=== PATIENT | female | born 1950 | race Caucasian/White ===

== ENCOUNTER 2017-07-09 06:46 | Inpatient (IN) ==
[2017-07-05 16:06] LABS: Appearance,Urine CLEAR; Bilirubin,Urine NEG (NEG); Color,Urine YELLOW; Glucose,Urine (UA) NEGATIVE (NEG); Leukocyte Esterase,Urine NEG /uL (NEG); Nitrate,Urine NEG (NEG); Protein,Urine NEG (NEG); Urine Blood NEG mg/dL (<0.03); Urobilinogen,Urine NEG (NEG)
[2017-07-05 16:39] LABS: Basophils # (Auto) 0 K/mcL (0.0-0.3); Basophils % (Auto) 0.3 % (0.0-2.0); Eosinophils # (Auto) 0.2 K/mcL (0.0-0.7); Eosinophils % (Auto) 2.2 % (0.0-7.0); Granulocytes % (Auto) 65.5 % (38.0-78.0); Lymphocytes % (Auto) 26.8 % (15.5-49.0); Mean Cell Volume 88.2 fL (80.0-100.0); Mean Corpuscular HGB Conc 33.8 g/dL (31.0-36.0); Mean Corpuscular Hemoglobin 29.8 pg (26.0-34.0); Monocytes # (Auto) 0.6 K/mcL (0.1-0.9); Monocytes % (Auto) 5.2 % (1.0-12.0); Platelet Count 346 K/mcL (140-440); RBC 5.13 M/mcL (4.00-5.20); Red Cell Distribution Width 12.8 % (11.5-14.5)
[2017-07-05 17:22] LABS: Blood Urea Nitrogen 16 mg/dl (8-23)
[~2017-07-09 06:46] MED LIST: ACETAMINOPHEN 500 MG TABLET PO SCH; CELECOXIB 200 MG CAPSULE PO SCH; KETOROLAC 30 MG, ROPIVACAINE HCL/PF 49.5 ML, EPINEPHrine 0.5 MG, 0.9 % SODIUM CHLORIDE ... IJ SCH; PREGABALIN 75 MG CAPSULE PO SCH; ceFAZolin 1 GM VIAL IV SCH; oxyCODONE 10 MG TAB.ER.12H PO SCH
[2017-07-09] MEDS ORDERED: SCOPOLAMINE 1 PATCH PATCH TOPICAL ONE (09:14)
[2017-07-09] MEDS ORDERED: DEXAMETHASONE 10 MG/ML VIAL IV ONE (09:25)
[2017-07-09] MEDS ORDERED: ONDANSETRON 4 MG/2 ML VIAL IV ONE (09:25)
[2017-07-09] MEDS ORDERED: PROPOFOL 200 MG/20 ML VIAL IV ONE (09:25)
[2017-07-09] MEDS ORDERED: LIDOCAINE HCL/PF 100 MG/5 ML SYRINGE IV ONE (09:25)
[2017-07-09] MEDS ORDERED: MIDAZOLAM 2 MG/2 ML VIAL IV ONE (09:25)
[2017-07-09] MEDS ORDERED: ROPIVACAINE HCL/PF 20 ML VIAL IJ ONE (09:25)
[2017-07-09] MEDS ORDERED: TRANEXAMIC ACID 1,000 MG/10 ML VIAL IV ONE ×2 (09:25→10:51)
[2017-07-09] MEDS ORDERED: METHOCARBAMOL 1,000 MG/10 ML VIAL IV PRN (10:19)
[2017-07-09] MEDS ORDERED: MEPERIDINE 50 MG/ML SYRINGE IM PRN (10:19)
[2017-07-09] MEDS ORDERED: BENZOCAINE/MENTHOL 1 LOZENGE PO PRN ×2 (10:19→10:51)
[2017-07-09] MEDS ORDERED: PROMETHAZINE 25 MG/ML VIAL IM PRN (10:19)
[2017-07-09] MEDS ORDERED: IPRATROPIUM/ALBUTEROL 3 ML AMPUL.NEB NEB PRN (10:19)
[2017-07-09] MEDS ORDERED: LACTATED RINGERS 250 ML IV PRN (10:19)
[2017-07-09] MEDS ORDERED: ONDANSETRON 4 MG/2 ML VIAL IV PRN ×2 (10:19→10:51)
[2017-07-09] MEDS ORDERED: PROMETHAZINE 25 MG/ML VIAL IV PRN (10:19)
[2017-07-09] MEDS ORDERED: diphenhydrAMINE 50 MG/ML VIAL IV PRN (10:19)
[2017-07-09] MEDS ORDERED: FLUMAZENIL 0.1 MG/ML ML IV PRN (10:19)
[2017-07-09] MEDS ORDERED: fentaNYL 100 MCG/2 ML VIAL IV PRN (10:19)
[2017-07-09] MEDS ORDERED: ePHEDrine 50 MG/ML AMPUL IV PRN (10:19)
[2017-07-09] MEDS ORDERED: NALOXONE HCL 0.4 MG/ML VIAL IV PRN (10:19)
[2017-07-09] MEDS ORDERED: MEPERIDINE 25 MG/ML SYRINGE IV PRN (10:19)
[2017-07-09] MEDS ORDERED: LACTATED RINGERS 1,000 ML IV SCH (10:30)
[2017-07-09] MEDS ORDERED: GENTAMICIN SULFATE 800 MG/20 ML VIAL IR ONE (10:35)
[2017-07-09] MEDS ORDERED: POLYETHYLENE GLYCOL 3350 17 GM PACKET PO PRN (10:51)
[2017-07-09] MEDS ORDERED: oxyCODONE/APAP 5/325MG TABLET PO PRN (10:51)
[2017-07-09] MEDS ORDERED: FLEETS ADULT ENEMA PR PRN (10:51)
[2017-07-09] MEDS ORDERED: HYDROmorphone 2 MG/ML SYRINGE IV PRN (10:51)
[2017-07-09] MEDS ORDERED: TEMAZEPAM 15 MG CAPSULE PO PRN (10:51)
[2017-07-09] MEDS ORDERED: MAGNESIUM HYDROXIDE 30 ML ORAL.SUSP PO PRN (10:51)
[2017-07-09] MEDS ORDERED: ACETAMINOPHEN 325 MG TABLET PO PRN (10:51)
[2017-07-09] MEDS ORDERED: BISACODYL 10 MG SUPP.RECT PR PRN (10:51)
--- NOTE | 2017-07-09 10:51 | Brief Operative Note ---
Date of procedure: 07/09/17 Pre-op diagnosis: Right knee severe djd Post-op diagnosis: same Procedure: right knee tka with robot Grafts/Implants: Yes Anesthesia: GETA Complications: none Surgeon: Ayaz Holcomb [employer] Counselor: Jak Coles Estimated blood loss (cc): 50 Tourniquet Time (Minutes): 40 Specimens Removed/Pathology: none sent Condition: stable Disposition: PACU
[2017-07-09] MEDS ORDERED: traMADol 50 MG TABLET PO PRN (10:58)
--- NOTE | 2017-07-09 11:49 | XRay Report ---
CLINICAL INFORMATION: Status post right knee replacement TECHNIQUE: AP and crosstable lateral right knee COMPARISON: Preoperative evaluation dated 06/05/2017 FINDINGS: Status post right total knee arthroplasty. Femoral and tibial complements are in anatomic positions. There is postsurgical soft tissue and intra-articular gas. IMPRESSION: Right knee arthroplasty Interpreted and Authenticated by: Steve Mueller 07/09/17
--- NOTE | 2017-07-09 12:55 | Operative Note ---
DATE OF OPERATION: 07/09/2017 PREOPERATIVE DIAGNOSIS: Right knee degenerative arthritis, severe. POSTOPERATIVE DIAGNOSIS: Right knee degenerative arthritis, severe with the addition of a flexion contracture of about 20 degrees with valgus malalignment about 10. PROCEDURE: Right total knee arthroplasty using the SINTIA robot. SURGEON: Ayaz Holcomb MD SLIDE FASTENERS INSPECTOR: Jak Coles PA-C ANESTHESIA: General LMA anesthesia. TOURNIQUET TIME: 40 minutes. ESTIMATED BLOOD LOSS: 50 mL DESCRIPTION OF PROCEDURE: The patient was brought to the operating room and put to sleep with general LMA anesthesia. Once asleep, the patient had the right leg sterilely prepped and draped in the usual sterile fashion. Confirmed the operative site with a preoperative timeout as well as tranexamic acid and Ancef were given. Once this had been given we made a midline incision, a mid vastus approach performed showing severe arthritis with a flexion contracture of about 20 degrees. We placed pins above and below the knee, intraarticular pins and registered 30 points on the femur and tibia. We balanced the knee, both at 15 and 90 degrees. Once balanced and we moved the implants to accommodate for the flexion contracture we irrigated thoroughly and then brought the robot in and registered the robot and then made our cuts on the femur and on the tibial side. Once done, we then took the bony fragments away and removed the remnants of the meniscus, removed osteophytes posteriorly. I injected the soft tissues with the post-injection formula. We then completely clean out the knee with thorough irrigation. The CarboJet was used to clean the bone. We then placed cement and the tibial baseplate. Rotation was set by the robot. We then placed the femoral component and 11 mm poly. This balanced very nicely both in flexion and extension and then we prepared the patella measuring 20 mm. We cut this to 13 mm and placed a 13 mm poly because of the severity of the wear. Once everything was dry, we then removed excess cement. We closed the capsule with #1 Stratafix x2 stitches we closed the skin with 2-0 Vicryl and adhesive closure. Sterile bandage applied. Tourniquet 40 minutes. RBH:haseeb Job ID: [id number] Doc ID: [id number] Ayaz Holcomb MD
[2017-07-09] MEDS: 0.45 % SODIUM CHLORIDE 1,000 ML IV SCH ×2 (13:07→22:44)
[2017-07-09] MEDS: KETOROLAC 15 MG/ML VIAL IV SCH ×2 (13:07→17:54)
[2017-07-09] MEDS: 0.9 % SODIUM CHLORIDE 10 ML SYRINGE IV SCH (13:08)
[2017-07-09] MEDS: ceFAZolin 1 GM VIAL IV SCH (17:54)
[2017-07-09] MEDS: DOCUSATE SODIUM 100 MG CAPSULE PO SCH (20:55)
[2017-07-09] MEDS: ASPIRIN 325 MG ENTERIC COATED TABLET PO SCH (20:56)
[2017-07-09] MEDS ORDERED: SIMVASTATIN 10 MG TABLET PO SCH (21:00)
[2017-07-09] MEDS ORDERED: SENNOSIDES 1 TABLET PO SCH (21:00)
[2017-07-09] MEDS ORDERED: NORTRIPTYLINE 10 MG CAPSULE PO SCH (21:00)
[2017-07-10] MEDS: KETOROLAC 15 MG/ML VIAL IV SCH ×3 (00:19→12:45)
[2017-07-10] MEDS: ceFAZolin 1 GM VIAL IV SCH (00:19)
[2017-07-10] MEDS: 0.9 % SODIUM CHLORIDE 10 ML SYRINGE IV SCH ×2 (00:19→04:33)
--- NOTE | 2017-07-10 07:45 | Orthopedic Progress Note ---
Subjective Patient information: Note initiated : 07/10/17 at 7:44 am Service Date, if different from initiated Date: [] Patient: Татьяна Montemayor 67 y/o F admitted on 07/09/17 for Arthroplasty, Knee Total Right [place]. Chief Complaint: [Pt is stable this morning on post operative day 1 without any significant concerns or complaints. Patients vital signs have remained stable. Patients dressing is dry and exhibits a grossly intact neurovascular and neuromotor exam. Patients 10 point ROS is otherwise negative. ] Objective Vital signs: Vital Signs Temp Pulse Resp BP Pulse Ox 07/10/17 04:00 97 07/09/17 23:33 98.0 F 77 16 132/77 97 07/09/17 20:00 97.8 F 86 18 144/78 95 07/09/17 15:50 96.9 F L 84 16 130/72 96 07/09/17 14:34 97.4 F 82 16 147/85 95 07/09/17 13:21 85 148/78 95 07/09/17 12:50 85 129/75 94 07/09/17 12:35 87 154/79 94 07/09/17 12:22 88 153/83 95 07/09/17 12:20 95 07/09/17 12:05 97.4 F 88 16 147/72 94 07/09/17 11:50 98.6 F 98 H 20 136/58 98 07/09/17 11:35 96 H 16 138/65 100 07/09/17 11:20 97 H 19 131/57 98 07/09/17 11:15 95 07/09/17 11:07 98.8 F 98 H 12 131/64 94 Intake and Output 07/09/17 07/10/17 07/10/17 21:59 05:59 13:59 Intake Total 1542 / 1542 Output Total 1078 / 1078 300 / 300 Balance -1078 / -1078 1242 / 1242 Intake: IV 962 / 962 Sodium Chloride 0.45% 1,000 ml 962 / 962 @ 100 mls/hr IV .Q10H [facility] Rx#: [id number] Oral 580 / 580 Output: Void Amount 1075 / 1075 300 / 300 # of times incontinent of urine 2 / 2 Emesis / Other: # Voids 1 1 Weight 196 lb Intake & Output: Intake & Output 07/09/17 07/10/17 07/10/17 21:59 05:59 13:59 Intake Total 1542 / 1542 Output Total 1078 / 1078 300 / 300 Balance -1078 / -1078 1242 / 1242 Weight 196 lb Intake: IV 962 / 962 Sodium Chloride 0.45% 1,000 ml 962 / 962 @ 100 mls/hr IV .Q10H [facility] Rx#: [id number] Oral 580 / 580 Output: Void Amount 1075 / 1075 300 / 300 # of times incontinent of urine 2 / 2 Emesis Other: # Voids 1 1 Incision: Yes healing Incision clean and dry: Yes Dressing: Yes clean, Yes dry Weight bearing status: full Neurological exam IM: Yes motor sensory intact, Yes neurovascular intact Extremities exam IM: Yes Foot pink and warm, Yes neurovascular intact - Labs CBC & BMP: 07/10/17 06:00 07/05/17 14:32 Labs: Orthopedic Labs 07/05/17 14:32 PT 12.6 INR 0.9 APTT 27 07/10/17 07/05/17 06:00 14:32 Hgb 15.3 H Hct 36.3 45.3 Assessment and Plan (1) Hx of total knee arthroplasty The patient has been educated regarding dressing care, Physical Therapy recommendations, home exercises, restrictions, and follow up appointments. The patient has had all necessary DME prescribed. The patient has remained stable during their hospital course. The patient was discharge with a stable exam. Status: Acute
--- NOTE | 2017-07-10 07:47 | Discharge Summary ---
Ortho Discharge - TKA - Patient Instructions Diet: Regular Diet Activity: activity as tolerated, weight bearing as tolerated Total Knee Protocol: For Total Knee: Start ROM EDD with stationary bike or rocking chair. Work on gaining full extension of knee. Posterior dislocation precautions provided. Hip abductor strengthening and gait training instructions provided. Apply Cryocuff as instructed. Dressing Care: May shower in 2 days Additional Instructions: CPM for home use - Problem Maintenance (1) Hx of total knee arthroplasty Status: Acute - Follow Up Plan Follow Up Appointments: Ayaz Holcomb MD [Physician] - 07/24/17 10:00 am Disposition: Home, Self-Care Prognosis: Good Rehab Potential: Good I certify that the patient requires SNF services: No Overall status at discharge: patient is progressing back to baseline - Orders For Discharge Prescriptions: Aspirin [Ecotrin] 325 mg PO BID #60 tab.ec Docusate Sodium [Colace] 100 mg PO BID #60 cap oxyCODONE/APAP [Percocet 5-325 mg] 1 - 2 tab PO Q4HP PRN #75 tab PRN Reason: Pain
[2017-07-10] MEDS ORDERED: metFORMIN 500 MG TAB.XL.24H PO SCH (08:00)
[2017-07-10] MEDS: ASPIRIN 325 MG ENTERIC COATED TABLET PO SCH (09:57)
[2017-07-10] MEDS: DOCUSATE SODIUM 100 MG CAPSULE PO SCH (09:57)
[2017-07-11] MEDS ORDERED: IBUPROFEN 200 MG TABLET PO PRN (13:00)
== END 2017-07-10 14:30 | disposition home or self-care (01) | DRG 470 ==
LOC: MEDSUR 06:46
PROVIDERS: ADMIT Orthopaedic Surgery; ATTEND Orthopaedic Surgery

== ENCOUNTER 2018-09-23 07:15 | Inpatient (IN) ==
[2018-09-17 15:42] LABS: Appearance,Urine HAZY; Bilirubin,Urine NEG (NEG); Color,Urine YELLOW; Glucose,Urine (UA) NEGATIVE (NEG); Leukocyte Esterase,Urine NEG /uL (NEG); Protein,Urine NEG (NEG); Specific Gravity,Urine 1.024 (1.000-1.035); Urine Blood NEG mg/dL (<0.03); Urobilinogen,Urine NEG (NEG)
[2018-09-17 15:53] LABS: Basophils # (Auto) 0 K/mcL (0.0-0.3); Basophils % (Auto) 0.2 % (0.0-2.0); Eosinophils # (Auto) 0.1 K/mcL (0.0-0.7); Eosinophils % (Auto) 0.5 % (0.0-7.0); Granulocytes % (Auto) 76.4 % (38.0-78.0); Lymphocytes # (Auto) 1.9 K/mcL (1.5-4.8); Lymphocytes % (Auto) 17.3 % (15.5-49.0); Mean Cell Volume 86.9 fL (80.0-100.0); Mean Corpuscular HGB Conc 32.8 g/dL (31.0-36.0); Monocytes # (Auto) 0.6 K/mcL (0.1-0.9); Monocytes % (Auto) 5.6 % (1.0-12.0); Platelet Count 350 K/mcL (140-440); RBC 5.41 M/mcL (4.00-5.20); Red Cell Distribution Width 12.9 % (11.5-14.5)
[2018-09-17 16:01] LABS: Blood Urea Nitrogen 21 mg/dl (8-23)
[2018-09-17 17:43] LABS: Estimated Average Glucose(eAG) 117 mg/dL; Hemoglobin A1C 5.7 % HGB (4.0-6.0)
[~2018-09-23 07:15] MED LIST changes: +0.9 % SODIUM CHLORIDE 9 ML, KETOROLAC 30 MG, ROPIVACAINE HCL/PF 49.5 ML, EPINEPHrine 0.... IJ SCH; -KETOROLAC 30 MG, ROPIVACAINE HCL/PF 49.5 ML, EPINEPHrine 0.5 MG, 0.9 % SODIUM CHLORIDE ... IJ SCH
[2018-09-23] MEDS ORDERED: SCOPOLAMINE 1 PATCH PATCH TOPICAL ONE (08:00)
[2018-09-23] MEDS ORDERED: GENTAMICIN SULFATE 800 MG/20 ML VIAL IR ONE (12:25)
[2018-09-23] MEDS ORDERED: IPRATROPIUM/ALBUTEROL 3 ML AMPUL.NEB NEB PRN (12:42)
[2018-09-23] MEDS ORDERED: ATROPINE SULFATE 0.4 MG/ML VIAL IV PRN (12:42)
[2018-09-23] MEDS ORDERED: PROMETHAZINE 25 MG/ML VIAL IV PRN (12:42)
[2018-09-23] MEDS ORDERED: diphenhydrAMINE 50 MG/ML VIAL IV PRN (12:42)
[2018-09-23] MEDS ORDERED: ONDANSETRON 4 MG/2 ML VIAL IV PRN ×2 (12:42→13:19)
[2018-09-23] MEDS ORDERED: METHOCARBAMOL 1,000 MG/10 ML VIAL IV PRN (12:42)
[2018-09-23] MEDS ORDERED: FLUMAZENIL 0.1 MG/ML ML IV PRN (12:42)
[2018-09-23] MEDS ORDERED: ePHEDrine 50 MG/ML AMPUL IV PRN (12:42)
[2018-09-23] MEDS ORDERED: METOPROLOL TARTRATE 5 MG/5 ML VIAL IV PRN (12:42)
[2018-09-23] MEDS ORDERED: HYDROmorphone 2 MG/ML VIAL IV PRN ×2 (12:42→13:19)
[2018-09-23] MEDS ORDERED: MEPERIDINE 25 MG/ML SYRINGE IV PRN (12:42)
[2018-09-23] MEDS ORDERED: NALOXONE HCL 0.4 MG/ML VIAL IV PRN (12:42)
[2018-09-23] MEDS ORDERED: fentaNYL 100 MCG/2 ML VIAL IV PRN (12:42)
[2018-09-23] MEDS ORDERED: LACTATED RINGERS 1,000 ML IV SCH (12:45)
--- NOTE | 2018-09-23 13:18 | Brief Operative Note ---
Date of procedure: 09/23/18 Pre-op diagnosis: left knee djd Post-op diagnosis: same Procedure: left robotic tka Grafts/Implants: Yes Anesthesia: GETA Complications: none Surgeon: Ayaz Holcomb [employer] Designer: Jak Coles Estimated blood loss (cc): 20 Tourniquet Time (Minutes): 50 Specimens Removed/Pathology: none sent Condition: stable Disposition: PACU
[2018-09-23] MEDS ORDERED: TRANEXAMIC ACID 1,000 MG/10 ML VIAL IV SCH (13:19)
[2018-09-23] MEDS ORDERED: FLEETS ADULT ENEMA PR PRN (13:19)
[2018-09-23] MEDS ORDERED: BISACODYL 10 MG SUPP.RECT PR PRN (13:19)
[2018-09-23] MEDS ORDERED: BENZOCAINE/MENTHOL 1 LOZENGE PO PRN (13:19)
[2018-09-23] MEDS ORDERED: oxyCODONE/APAP 5/325MG TABLET PO PRN (13:19)
[2018-09-23] MEDS ORDERED: ACETAMINOPHEN 325 MG TABLET PO PRN (13:19)
[2018-09-23] MEDS ORDERED: MAGNESIUM HYDROXIDE 30 ML ORAL.SUSP PO PRN (13:19)
[2018-09-23] MEDS ORDERED: POLYETHYLENE GLYCOL 3350 17 GM PACKET PO PRN (13:19)
[2018-09-23] MEDS ORDERED: ONDANSETRON 4 MG/2 ML VIAL IV ONE (13:39)
[2018-09-23] MEDS ORDERED: ePHEDrine 50 MG/ML AMPUL IV ONE (13:39)
[2018-09-23] MEDS ORDERED: TRANEXAMIC ACID 1,000 MG/10 ML VIAL IV ONE (13:39)
[2018-09-23] MEDS ORDERED: ROPIVACAINE HCL/PF 20 ML VIAL IJ ONE (13:39)
[2018-09-23] MEDS ORDERED: GLYCOPYRROLATE 0.2 MG/ML VIAL IV ONE (13:39)
[2018-09-23] MEDS ORDERED: PHENYLEPHRINE 10 MG/ML VIAL IV ONE (13:39)
[2018-09-23] MEDS ORDERED: MIDAZOLAM 5 MG/5 ML VIAL IV ONE (13:39)
[2018-09-23] MEDS ORDERED: LIDOCAINE HCL/PF 100 MG/5 ML SYRINGE IV ONE (13:39)
[2018-09-23] MEDS ORDERED: PROPOFOL 200 MG/20 ML VIAL IV ONE (13:39)
[2018-09-23] MEDS ORDERED: PROMETHAZINE 25 MG/ML VIAL IV ONE (13:39)
--- NOTE | 2018-09-23 14:18 | XRay Report ---
CLINICAL INFORMATION: Post-Op Total Knee COMPARISON: None. FINDINGS: Total knee prostheses is anatomically aligned. No osseous abnormality. Periarticular gas and soft tissue swelling seen as expected. IMPRESSION: Negative Interpreted and Authenticated by: Steve Greer 09/23/18
--- NOTE | 2018-09-23 14:23 | Operative Note ---
DATE OF OPERATION: 09/23/2018 PREOPERATIVE DIAGNOSES: Left knee degenerative arthritis with valgus malalignment and flexion contracture of 30 degrees. POSTOPERATIVE DIAGNOSIS: Left knee degenerative arthritis with valgus malalignment and flexion contracture of 30 degrees. PROCEDURE: Left robotic total knee arthroplasty. COMPLICATIONS: None. SURGEON: Ayaz Holcomb MD CABLE SWAGER: Jak Coles PA-C. ANESTHESIA: General LMA anesthesia. ESTIMATED BLOOD LOSS: About 20 to 30 mL TOURNIQUET TIME: 50 minutes. IMPLANTS: Per nurse's note. These were cemented [place] components. The poly was a 12 mm poly with a 36 mm patellar button. DESCRIPTION OF PROCEDURE: The patient was brought to the surgery area and a timeout was performed confirming the left knee as the operative site. Initials and consent form and x-rays were all reviewed to make sure this was the case. Once done, we then proceed with left robotic total knee. We made a midline incision, mid vastus approach performed. We placed pins above and below the knee, registered the center hip rotation. Medial and lateral malleoli were registered as well as 30 points on the femur and the tibia. We balanced the knee after removing spurs, brought in the robot, made the appropriate cuts. She started with an initial malalignment of about 3 degrees of valgus and 30 degrees flexion contracture. We did make a +2 mm cut on the femur to assist us with gaining full extension. With this, we then made the bony cuts, removed spurs posteriorly. We preserved the PCL and performed a subperiosteal release of the lateral collateral ligament. Once done, we then irrigated thoroughly and placed a 12 mm poly which was the most appropriate, gaining 4 degrees of flexion contracture and balanced perfectly. The patient tolerated this well. There was no complication. We then cemented into place the components. Excess cement was removed, 9 mm poly. The patella was originally 22 mm in thickness. This was cut to 13 mm and we cemented into place a 36 mm patellar button. A small chamfer cut and spurs removed from the patella-it tracked perfectly. We irrigated thoroughly and then cemented the patella and kept it at 45 degrees until cement was dry. We irrigated thoroughly once more and injected the posterior capsular injection and then closed the mid vastus approach with #1 Stratafix x2 sutures. The skin was closed with #1 Stratafix and adhesive closure. The patient tolerated this well without complication. RBSejal:haseeb Job ID: [id number] Doc ID: [id number] Ayaz Holcomb MD
[2018-09-23] MEDS: 0.9 % SODIUM CHLORIDE 10 ML SYRINGE IV SCH ×2 (14:55→21:14)
[2018-09-23] MEDS: ceFAZolin 1 GM VIAL IV SCH (18:01)
[2018-09-23] MEDS: KETOROLAC 30 MG/ML VIAL IV SCH ×2 (18:02→23:25)
[2018-09-23] MEDS: 0.45 % SODIUM CHLORIDE 1,000 ML IV SCH ×2 (18:03→23:00)
[2018-09-23] MEDS ORDERED: NORTRIPTYLINE 10 MG CAPSULE PO SCH (21:00)
[2018-09-23] MEDS ORDERED: TEMAZEPAM 15 MG CAPSULE PO PRN (21:00)
[2018-09-23] MEDS ORDERED: SIMVASTATIN 10 MG TABLET PO SCH (21:00)
[2018-09-23] MEDS ORDERED: SENNOSIDES 1 TABLET PO SCH (21:00)
[2018-09-23] MEDS ORDERED: GABAPENTIN 300 MG CAPSULE PO SCH (21:00)
[2018-09-23] MEDS: ASPIRIN 325 MG ENTERIC COATED TABLET PO SCH (21:01)
[2018-09-23] MEDS: DOCUSATE SODIUM 100 MG CAPSULE PO SCH (21:02)
[2018-09-24] MEDS: ceFAZolin 1 GM VIAL IV SCH (03:39)
[2018-09-24] MEDS: KETOROLAC 30 MG/ML VIAL IV SCH ×2 (05:53→12:49)
[2018-09-24] MEDS: 0.9 % SODIUM CHLORIDE 10 ML SYRINGE IV SCH (05:54)
--- NOTE | 2018-09-24 07:44 | Orthopedic Progress Note ---
Subjective Patient information: Note initiated : 09/24/18 at 7:43 am Service Date, if different from initiated Date: [] Patient: Татьяна Montemayor 68 y/o F admitted on 09/23/18 for Left Robotic Total Knee Arthroplasty. Chief Complaint: [Pt is stable this morning on post operative day 1 without any significant concerns or complaints. Patients vital signs have remained stable. Patients dressing is dry and is grossly intact from a neurovascular and motor standpoint. Patients 10 point ROS is otherwise negative. ] Objective Vital signs: Vital Signs Temp Pulse Resp BP BP Pulse Ox 09/24/18 03:33 97.9 F 77 16 118/62 95 09/23/18 23:27 97.6 F 85 18 138/68 95 09/23/18 19:39 97.8 F 91 H 18 150/69 94 09/23/18 18:22 96 09/23/18 15:55 127/69 96 09/23/18 15:23 129/67 96 09/23/18 15:09 122/67 95 09/23/18 14:53 132/68 94 09/23/18 14:38 130/69 96 09/23/18 14:23 132/68 95 09/23/18 14:11 98.0 F 86 13 132/59 97 09/23/18 13:51 97.0 F 94 H 23 H 137/63 99 09/23/18 13:46 92 H 14 146/63 100 09/23/18 13:41 94 H 14 137/55 100 09/23/18 13:36 97.1 F 95 H 12 134/58 100 Intake and Output 09/23/18 09/24/18 09/24/18 21:59 05:59 13:59 Intake Total 2420 1600 Output Total 1200 550 Balance 1220 1050 Intake: IV 1000 Sodium Chloride 0.45% 1,000 ml 1000 @ 100 mls/hr IV .Q10H [facility] Rx#: [id number] Oral 420 600 Other 2000 Output: Void Amount 1200 550 Other: Meal Dinner Percent of Meal Consumed 100% Weight 214 lb Intake & Output: Intake & Output 09/23/18 09/24/18 09/24/18 21:59 05:59 13:59 Intake Total 2420 1600 Output Total 1200 550 Balance 1220 1050 Weight 214 lb Intake: IV 1000 Sodium Chloride 0.45% 1,000 ml 1000 @ 100 mls/hr IV .Q10H [facility] Rx#: [id number] Oral 420 600 Other 2000 Output: Void Amount 1200 550 Other: Meal Dinner Percent of Meal Consumed 100% Incision: Yes healing Incision clean and dry: Yes Dressing: Yes clean Weight bearing status: full Neurological exam IM: Yes motor sensory intact, Yes neurovascular intact Extremities exam IM: Yes Foot pink and warm, Yes neurovascular intact - Labs CBC & BMP: 09/24/18 05:36 09/17/18 13:32 Labs: Orthopedic Labs 09/17/18 13:33 PT 13.2 INR 1.0 APTT 28 09/24/18 09/17/18 05:36 13:33 Hgb 15.4 H Hct 38.5 47.0 Assessment and Plan (1) Hx of total knee arthroplasty The patient has been educated regarding dressing care, Physical Therapy recommendations, home exercises, restrictions, and follow up appointments. The patient has had all necessary DME prescribed. The patient has remained relatively stable during their hospital course. Leave Dermabond patch intact until followup Status: Acute
--- NOTE | 2018-09-24 07:47 | Discharge Summary ---
Ortho Discharge - TKA - Patient Instructions Diet: Regular Diet Activity: activity as tolerated, weight bearing as tolerated Total Knee Protocol: For Total Knee: Start ROM EDD with stationary bike or rocking chair. Work on gaining full extension of knee. Posterior dislocation precautions provided. Hip abductor strengthening and gait training instructions provided. Apply Cryocuff as instructed. Dressing Care: May shower in 2 days - Problem Maintenance (1) Hx of total knee arthroplasty Status: Acute - Follow Up Plan Follow Up Appointments: Jak Coles PA-C [Physician Body Liner] - 10/08/18 8:40 am Disposition: Home, Self-Care Prognosis: Good Rehab Potential: Good I certify that the patient requires SNF services: No Overall status at discharge: patient is progressing back to baseline - Orders For Discharge Prescriptions: Aspirin [Ecotrin] 325 mg PO BID #60 tab.ec Docusate Sodium [Colace] 100 mg PO BID #60 capsule Gabapentin [Neurontin] 300 mg PO HS #30 capsule oxyCODONE/APAP [Percocet 5-325 mg] 1 - 2 tab PO Q4HP PRN #75 tab PRN Reason: Pain Level 3-6
[2018-09-24] MEDS: ASPIRIN 325 MG ENTERIC COATED TABLET PO SCH (08:29)
[2018-09-24] MEDS: DOCUSATE SODIUM 100 MG CAPSULE PO SCH (08:29)
[2018-09-24] MEDS ORDERED: LISINOPRIL 20 MG TABLET PO SCH (09:00)
[2018-09-24] MEDS: 0.45 % SODIUM CHLORIDE 1,000 ML IV SCH (09:44)
[2018-09-24] MEDS ORDERED: metFORMIN 500 MG TAB.XL.24H PO SCH (21:00)
== END 2018-09-24 13:40 | disposition home or self-care (01) | DRG 470 ==
LOC: MEDSUR 07:15
PROVIDERS: ADMIT Orthopaedic Surgery; ATTEND Orthopaedic Surgery

== ENCOUNTER 2025-03-09 13:48 | Observation (INO) ==
[2025-03-09] MEDS: DEXTROSE 50% 50 ML VIAL IV ONE (14:39)
[2025-03-09] MEDS: INSULIN REGULAR, HUMAN 1 UNIT/0.01 ML UNIT IV ONE (14:41)
[2025-03-09] MEDS: NITROGLYCERIN/D5W 25 MG/250 ML BOTTLE IV SCH (14:44)
[2025-03-09] MEDS: SODIUM BICARBONATE VIAL 50 MEQ in EMPTYBAG 0 ML IV SCH (14:54)
[2025-03-09] MEDS: SODIUM BICARBONATE 50 MEQ/50 ML VIAL IV ONE (15:16)
[2025-03-09] MEDS ORDERED: ONDANSETRON 4 MG/2 ML VIAL IV PRN (16:33)
[2025-03-09] MEDS ORDERED: LABETALOL HCL 20 MG/4 ML VIAL IV PRN (16:33)
[2025-03-09] MEDS ORDERED: DEXTROSE 31 GM ORAL.SUSP PO PRN (16:33)
[2025-03-09] MEDS ORDERED: SENNOSIDES 1 TABLET PO PRN (16:33)
[2025-03-09] MEDS ORDERED: IPRATROPIUM/ALBUTEROL 3 ML AMPUL.NEB NEB PRN (16:33)
[2025-03-09] MEDS ORDERED: POTASSIUM CHLORIDE 40 MEQ in DEXTROSE 5% IN WATER 500 ML IV PRN (16:33)
[2025-03-09] MEDS ORDERED: METOCLOPRAMIDE 10 MG/2 ML VIAL IV PRN (16:33)
[2025-03-09] MEDS ORDERED: MAGNESIUM SULFATE 2 GM/50 ML BAG IV PRN (16:33)
[2025-03-09] MEDS ORDERED: POTASSIUM CHLORIDE 20 MEQ TABLET PO PRN ×2 (16:33)
[2025-03-09] MEDS ORDERED: DEXTROSE 50% 50 ML VIAL IV PRN (16:33)
[2025-03-09] MEDS ORDERED: POLYETHYLENE GLYCOL 3350 17 GM PACKET PO PRN (16:33)
[2025-03-09 17:05] LABS: Potassium 5.7 mmol/L (3.3-5.1)
[2025-03-09] MEDS ORDERED: CARBOXYMETHYLCELLULOSE SODIUM 1 EACH DROPER.GEL OU PRN (17:30)
[2025-03-09] MEDS: CARVEDILOL 3.125 MG TABLET PO SCH (17:37)
[2025-03-09] MEDS: FUROSEMIDE 40 MG/4 ML VIAL IV ONE (17:37)
[2025-03-09] MEDS: INSULIN LISPRO 1 UNIT/0.01 ML UNIT SQ SCH (17:38)
[2025-03-09] MEDS: hydrALAZINE 20 MG/ML VIAL IV PRN (19:58)
[2025-03-09] MEDS: SODIUM ZIRCONIUM CYCLOSILICATE 5 GM PACKET PO SCH (21:09)
[2025-03-09] MEDS: HEPARIN 5,000 UNIT/ML VIAL SQ SCH (21:09)
[2025-03-09] MEDS: SIMVASTATIN 10 MG TABLET PO SCH (21:10)
[2025-03-09] MEDS: SODIUM BICARBONATE 650 MG TABLET PO SCH (21:11)
[2025-03-09] MEDS: AMITRIPTYLINE 25 MG TABLET PO SCH (21:11)
[2025-03-09] MEDS: DOCUSATE SODIUM 100 MG CAPSULE PO SCH (21:12)
[2025-03-10 07:08] LABS: Basophils # (Auto) 0.02 K/mcL (0.00-0.30); Basophils % (Auto) 0.1 % (0.0-2.0); Eosinophils # (Auto) 0 K/mcL (0.00-0.70); Eosinophils % (Auto) 0 % (0.0-7.0); Hematocrit 48.1 % (34.1-44.9); Hemoglobin 16.0 g/dL (11.2-15.7); Lymphocytes # (Auto) 1.81 K/mcL (1.50-4.80); Lymphocytes % (Auto) 5.7 % (15.5-49.0); Mean Corpuscular HGB Conc 33.3 g/dL (31.0-36.0); Monocytes # (Auto) 1.02 K/mcL (0.10-0.90); Monocytes % (Auto) 3.2 % (1.0-12.0); Neutrophils % (Auto) 88.3 % (38.0-78.0); Platelet Count 465 K/mcL (140-440); RBC 5.54 M/mcL (3.59-5.38); WBC 31.8 K/mcL (4.5-11.0)
[2025-03-10 08:07] VITALS: TEMP 97.8
[2025-03-10 08:21] LABS: RBC Morphology NORMAL (Normal)
[2025-03-10 08:28] LABS: ALT/SGPT 11 U/L (<40); AST/SGOT 22 U/L (<32); Albumin 4.0 gm/dL (3.2-5.2); Albumin/Globulin Ratio 1.1 (1.0-2.3); Alkaline Phosphatase 124 U/L (39-117); Anion Gap 19.0 (8.0-16.0); Bilirubin,Direct < 0.2 mg/dL (0-0.3); Bilirubin,Total 0.5 mg/dL (0.1-1.0); Blood Urea Nitrogen 24 mg/dL (8-23); Calcium 9.4 mg/dL (8.6-10.4); Carbon Dioxide 19 mmol/L (22-30); Chloride 94 mmol/L (96-108); Globulin 3.7 gm/dL (2.2-3.7); Glucose 254 mg/dL (70-105); Phosphorous 3.3 mg/dL (2.5-4.5); Potassium 5.0 mmol/L (3.3-5.1); Sodium 132 mmol/L (133-145); Triglycerides 153 mg/dL (<150); Uric Acid 7.5 mg/dL (2.5-8.0)
[2025-03-10] MEDS: LEVOTHYROXINE 100 MCG TABLET PO SCH (08:32)
[2025-03-10] MEDS: MIRABEGRON 25 MG TAB.ER.24H PO SCH (08:33)
[2025-03-10 09:21] VITALS: O2SAT 95
== END 2025-03-10 11:14 | disposition home or self-care (01) ==
LOC: ED 13:48 → ICU 13:48
PROVIDERS: ADMIT Internal Medicine; ATTEND Internal Medicine